=== PATIENT | male | born 1985 | race Native Hawaiian/Other Pacific Islander ===

== ENCOUNTER 2020-12-05 12:01 | Outpatient (CLI) | payer OTHER | END 2020-12-05 21:06 | disposition home or self-care (01) | LOC: RAD 12:01 | PROVIDERS: ATTEND Internal Medicine | DX: R76.11 Nonspecific reaction to tuberculin skin test without active tuberculosis (principal) ==

== ENCOUNTER 2022-03-05 16:11 | Outpatient (CLI) | payer OTHER | END 2022-03-05 19:18 | disposition home or self-care (01) | LOC: RAD 16:11 | PROVIDERS: ATTEND Nurse Practitioner Family | DX: M54.59 Other low back pain (principal) ==